=== PATIENT | male | born 1970 | race Caucasian/White ===

== ENCOUNTER → 2022-06-28 15:45 | Outpatient (CLI) | payer BC, SELFPAY ==
--- NOTE | ~2022-06-28 | CT_ITS ---
EXAMINATION:CT lung screening DATE: 06/28/2022 16:01 INDICATION: Personal history of tobacco dependence. Smoker who quit 14 years ago with 23 pack year hi story. TECHNIQUE: Computed tomography (CT) of the chest was performed without intravenous contrast. Automate d exposure control and iterative reconstruction technique were employed. The dose-length product (DLP ) was 97.15 mGy-cm. COMPARISON: None. FINDINGS: There is no pneumonia or pleural effusion. The heart size is normal. No pericardial effusio n. There is mild bilateral gynecomastia. There is mild chronic anterior wedging of multiple vertebral bodies. There is mild thoracic spondylosis. IMPRESSION: 1. Lung-RADS category 1: Negative. Continue annual screening with noncontrast low-dose chest CT in 12 months. Reviewed, dictated and finalized at location A. [facility] IMPRESSION: 1. Lung-RADS category 1: Negative. Continue annual screening with noncontrast l ow-dose chest CT in 12 months.
== END ==
PROVIDERS: PCP Student in an Organized Health Care Education/Training Program; Visit Provider Student in an Organized Health Care Education/Training Program
DX: Z12.2 Encounter for screening for malignant neoplasm of respiratory organs (principal); F17.211 Nicotine dependence, cigarettes, in remission
CPT/HCPCS: 71271